=== PATIENT | female | born 2000 | race American Indian/Alaskan Native ===

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

== ENCOUNTER 2022-09-23 16:21 | Observation (INO) | payer MEDICAID ==
[2022-09-23] MEDS ORDERED: Acetaminophen 325 MG Tab PO PRN (16:43)
[2022-09-23] MEDS ORDERED: Methylergonovine 0.2 MG/1 ML Amp IM PRN (16:43)
[2022-09-23] MEDS ORDERED: Carboprost Tromethamine 250 MCG/1 ML Amp IM PRN (16:43)
[2022-09-23] MEDS ORDERED: Lactated Ringers 1,000 ML IV ONE (16:43)
[2022-09-23] MEDS ORDERED: Sodium Chloride 0.9% 10 ML Syringe FLUSH PRN ×2 (16:43→19:00)
[2022-09-23] MEDS ORDERED: Lidocaine 1% 10 ML MDV INJECT PRN (16:43)
[2022-09-23] MEDS ORDERED: Ondansetron 4 MG/2 ML SDV IVPUSH PRN ×2 (16:43→18:41)
[2022-09-23] MEDS ORDERED: Misoprostol 400 MCG (4 X 100 MCG TAB) RECTAL PRN (16:43)
[2022-09-23] MEDS ORDERED: Lactated Ringers 1,000 ML IV SCH (16:45)
[2022-09-23] MEDS ORDERED: Tranexamic Acid 1,000 MG in Sodium Chloride 0.9% 100 ML IV PRN (16:46)
[2022-09-23] MEDS ORDERED: Dexmedetomidine 200 MCG/2 ML SDV IV ONE (17:30)
[2022-09-23] MEDS ORDERED: EPINEPHrine 1 MG/ML SDV IV ONE (17:30)
[2022-09-23] MEDS ORDERED: Ondansetron 4 MG/2 ML SDV IV ONE (17:30)
[2022-09-23] MEDS ORDERED: Sodium Chloride 0.9% 20 ML SDV IV ONE (17:30)
[2022-09-23] MEDS ORDERED: Morphine PF 10 MG/10 ML SDV IT ONE (17:30)
[2022-09-23] MEDS ORDERED: Sodium Chloride 0.9% 10 ML Syringe IV ONE (17:30)
[2022-09-23] MEDS ORDERED: Sodium Bicarbonate 4.2% 2.5 MEQ/5 ML SDV ONE ×2 (17:30→18:29)
[2022-09-23] MEDS ORDERED: ePHEDrine 50 MG/ML SDV IV ONE (17:30)
[2022-09-23] MEDS ORDERED: Promethazine 25 MG/ML SDV IM PRN (18:41)
[2022-09-23] MEDS ORDERED: ePHEDrine 50 MG/ML SDV IVPUSH PRN (18:41)
[2022-09-23] MEDS ORDERED: Naloxone 2 MG/2 ML Syringe IVPUSH PRN (18:41)
[2022-09-23] MEDS: Oxytocin/Normal Saline 30 UNIT/500 ML BAG IV SCH ×2 (18:44→20:45)
[2022-09-23] MEDS ORDERED: Lactated Ringers 500 ML IV SCH ×2 (18:45)
[2022-09-23] MEDS ORDERED: Zolpidem 5 MG Tab PO PRN (19:00)
[2022-09-23] MEDS ORDERED: Oxytocin 10 Units/1 ML SDV IM PRN (19:00)
[2022-09-23] MEDS ORDERED: Simethicone 80 MG Tab.Chew PO PRN (19:00)
[2022-09-23] MEDS ORDERED: Benzocaine/Menthol 20%-0.5% Spray 78 GM Cannister TOP PRN (19:00)
[2022-09-24] MEDS: Ferrous Sulfate 325 MG Tab PO SCH (07:58)
[2022-09-24] MEDS: Docusate Sodium 100 MG Cap PO PRN (07:59)
[2022-09-24] MEDS: Ibuprofen 800 MG Tab PO PRN (07:59)
[2022-09-24] MEDS: Prenatal Multivitamin with Calcium/Folic Acid/Iron Tab PO SCH (07:59)
[2022-09-24] MEDS ORDERED: Measles, Mumps & Rubella Vaccine 0.5 ML SDV SUBCUT ONE (12:00)
[2022-09-25] MEDS: Docusate Sodium 100 MG Cap PO PRN (08:19)
[2022-09-25] MEDS: Prenatal Multivitamin with Calcium/Folic Acid/Iron Tab PO SCH (08:19)
[2022-09-25] MEDS: Ferrous Sulfate 325 MG Tab PO SCH (08:19)
[2022-09-25] MEDS: Ibuprofen 800 MG Tab PO PRN (08:22)
[2022-09-25 13:44] VITALS: BP 126/54; PULSE 70
== END 2022-09-25 13:00 | disposition home or self-care (01) ==
LOC: DL.OBCHECK 16:21 → DL.OB 16:33
PROVIDERS: ADMIT Family Medicine; ATTEND Family Medicine
DX: O42.92 Full-term premature rupture of membranes, unspecified as to length of time between rupture and onset of labor (principal); O98.513 Other viral diseases complicating pregnancy, third trimester; O12.13 Gestational proteinuria, third trimester; F41.9 Anxiety disorder, unspecified; F32.A Depression, unspecified; Z90.49 Acquired absence of other specified parts of digestive tract; Z88.2 Allergy status to sulfonamides; Z88.1 Allergy status to other antibiotic agents; Z87.891 Personal history of nicotine dependence; Z3A.39 39 weeks gestation of pregnancy; Z79.899 Other long term (current) drug therapy; Z20.822 Contact with and (suspected) exposure to COVID-19
CPT/HCPCS: 36415; 59020; 59409; 85027; 87635; 90471; 90707; A9270; J2590; J3490; J7120; J0171; J2270; J2405; U0002

== ENCOUNTER 2024-03-24 20:06 | Emergency (ER) | payer MEDICAID, OTHER ==
[2024-03-24 20:53] VITALS: BP 137/94; PULSE 91
== END 2024-03-24 23:24 | disposition home or self-care (01) ==
LOC: DL.ED 20:06
DX: S93.401A Sprain of unspecified ligament of right ankle, initial encounter (principal); E66.9 Obesity, unspecified; Z90.49 Acquired absence of other specified parts of digestive tract; Z68.41 Body mass index [BMI] 40.0-44.9, adult; X50.1XXA Overexertion from prolonged static or awkward postures, initial encounter
CPT/HCPCS: 73610-RT; 99283

== ENCOUNTER 2024-05-28 16:38 | Emergency (ER) | payer OTHER ==
[2024-05-28 17:10] VITALS: BP 133/82; PULSE 83
[2024-05-28 18:06] LABS: BASOPHILS PERCENT AUTO 0.2 % (0.0-1.0); EOSINOPHILS PERCENT AUTO 0.3 % (1.0-3.0); HEMATOCRIT 42.5 % (37.0-47.0); HEMOGLOBIN 13.8 g/dL (12.0-16.0); LYMPHOCYTES PERCENT AUTO 10.3 % (20.5-50.1); MEAN CORPUSCULAR HEMOGLOBIN 26.7 pg (27.0-34.0); MEAN CORPUSCULAR HGB CONC 32.5 g/dL (33.0-35.0); MEAN CORPUSCULAR VOLUME 82.2 fL (80-100); MONOCYTES PERCENT AUTO 3.3 % (2-8); NEUTROPHILS PERCENT AUTO 85.9 % (42.2-75.2); PLATELET COUNT,PLT 314 10^3/uL (150-450); RED BLOOD CELL COUNT 5.17 10^6/uL (4.2-5.4); WHITE BLOOD CELL COUNT,WBC 14.3 10^3/uL (5.0-10.0)
[2024-05-28] MEDS: Sodium Chloride 0.9% 10 ML Syringe FLUSH PRN (18:06)
[2024-05-28] MEDS: Ondansetron 4 MG/2 ML SDV IVPUSH ONE ×2 (18:06→20:00)
[2024-05-28] MEDS: Lactated Ringers 1,000 ML IV ONE (18:06)
[2024-05-28 18:22] LABS: A/G RATIO 0.7; ALANINE AMINOTRANSFERASE,ALT 67 U/L (14-59); ALBUMIN 3.5 g/dL (3.4-5.0); ALKALINE PHOSPHATASE 80 U/L (46-116); ANION GAP 10.8 mEq/L (7-13); ASPARTATE AMNIOTRANSFERASE,AST 21 U/L (15-37); BILIRUBIN TOTAL 0.5 mg/dL (0.2-1.0); BLOOD UREA NITROGEN,BUN 7 mg/dL (7-18); BUN/CREATININE RATIO 7.2 (No establ ref range); CALCIUM 9.1 mg/dL (8.5-10.1); CARBON DIOXIDE,CO2 27 mmol/L (21-32); CHLORIDE,CL 102 mmol/L (98-107); CREATININE 0.97 mg/dL (0.55-1.02); EST CRCL DRUG DOSING (CG) 75.89 mL/min; GLUCOSE RANDOM 106 mg/dL (70-99); LIPASE 20 U/L (16-77); MAGNESIUM 1.5 mg/dL (1.8-2.4); POTASSIUM,K 3.8 mmol/L (3.5-5.1); PROTEIN TOTAL,TP 8.2 g/dL (6.4-8.2); SODIUM,NA 136 mmol/L (136-145)
[2024-05-28 18:23] LABS: ESTIMATED GFR 85 mL/min (>=60)
[2024-05-28 18:28] LABS: HCG QUALITATIVE,SERUM NEGATIVE (NEGATIVE)
[2024-05-28 18:30] LABS: LACTIC ACID 1.4 mmol/L (0.4-2.0)
[2024-05-28 18:34] LABS: APPEARANCE,URINE CLEAR (CLEAR); BILIRUBIN,URINE NEGATIVE (NEGATIVE); COLOR,URINE YELLOW (YELLOW); GLUCOSE,URINE NEGATIVE (NEGATIVE); KETONES,URINE NEGATIVE (NEGATIVE); LEUKOCYTE ESTERASE,URINE SMALL (NEGATIVE); NITRITE,URINE NEGATIVE (NEGATIVE); OCCULT BLOOD,URINE NEGATIVE (NEGATIVE); PROTEIN,URINE NEGATIVE (NEGATIVE); UROBILINOGEN,URINE 0.2 mg/dL (0.2-1.0)
[2024-05-28 18:42] LABS: BACTERIA,URINE MODERATE /HPF (0-FEW/HPF); EPITHELIAL CELLS,URINE MODERATE /HPF (NOT SEEN); MUCUS,URINE MODERATE /LPF (NOT SEEN); RBC,URINE 0-5 /HPF (0-5)
[2024-05-28] MEDS: Iopamidol 612 MG/ML 100 ML Bottle IVPUSH ONE (19:01)
[2024-05-28] MEDS: Ketorolac 30 MG/ML SDV IVPUSH ONE (19:48)
[2024-05-28] MEDS: Take Home: Ondansetron 4 MG Tab.DIS, 5 Tab Pack PO ONE (21:21)
== END 2024-05-28 21:44 | disposition home or self-care (01) ==
LOC: DL.ED 16:38
DX: A08.4 Viral intestinal infection, unspecified (principal); E66.9 Obesity, unspecified; F17.210 Nicotine dependence, cigarettes, uncomplicated; Z88.2 Allergy status to sulfonamides; Z88.8 Allergy status to other drugs, medicaments and biological substances; Z68.42 Body mass index [BMI] 45.0-49.9, adult; Z90.49 Acquired absence of other specified parts of digestive tract
CPT/HCPCS: 36415; 74177; 80053; 81001; 83605; 83690; 83735; 84703; 85025; 87086; 96361; 96374; 96375; 96376; 99284; 99284-25; J1885; J2405; J3490; J7120; Q0162; Q9967

== ENCOUNTER 2024-06-21 11:14 | Emergency (ER) | payer OTHER ==
[2024-06-21 11:35] VITALS: BP 126/75; PULSE 100
[2024-06-21] MEDS: Sodium Chloride 0.9% 1,000 ML IV ONE ×2 (12:16→15:01)
[2024-06-21] MEDS: Ondansetron 4 MG/2 ML SDV IVPUSH ONE (12:16)
[2024-06-21] MEDS: fentaNYL 100 MCG/2 ML SDV IVPUSH ONE (12:16)
[2024-06-21] MEDS: Sodium Chloride 0.9% 10 ML Syringe FLUSH PRN (12:17)
[2024-06-21 12:20] LABS: BASOPHILS PERCENT AUTO 0.2 % (0.0-1.0); EOSINOPHILS PERCENT AUTO 0.6 % (1.0-3.0); HEMOGLOBIN 13.1 g/dL (12.0-16.0); LYMPHOCYTES PERCENT AUTO 8.3 % (20.5-50.1); MEAN CORPUSCULAR HEMOGLOBIN 26.4 pg (27.0-34.0); MEAN CORPUSCULAR VOLUME 82.5 fL (80-100); MONOCYTES PERCENT AUTO 4.3 % (2-8); NEUTROPHILS PERCENT AUTO 86.6 % (42.2-75.2); PLATELET COUNT,PLT 372 10^3/uL (150-450); RED BLOOD CELL COUNT 4.97 10^6/uL (4.2-5.4); WHITE BLOOD CELL COUNT,WBC 22.2 10^3/uL (5.0-10.0)
[2024-06-21 12:39] LABS: APPEARANCE,URINE SLIGHTLY CLOUDY (CLEAR); BILIRUBIN,URINE NEGATIVE (NEGATIVE); COLOR,URINE YELLOW (YELLOW); GLUCOSE,URINE NEGATIVE (NEGATIVE); KETONES,URINE NEGATIVE (NEGATIVE); LEUKOCYTE ESTERASE,URINE SMALL (NEGATIVE); NITRITE,URINE NEGATIVE (NEGATIVE); OCCULT BLOOD,URINE NEGATIVE (NEGATIVE); PH,URINE 7.5 (5.0-9.0); PROTEIN,URINE 30 (NEGATIVE); UROBILINOGEN,URINE 0.2 mg/dL (0.2-1.0)
[2024-06-21 12:42] LABS: BACTERIA,URINE MODERATE /HPF (0-FEW/HPF); EPITHELIAL CELLS,URINE MODERATE /HPF (NOT SEEN); MUCUS,URINE RARE /LPF (NOT SEEN); RBC,URINE NOT SEEN /HPF (0-5)
[2024-06-21 12:42] LABS: A/G RATIO 0.7; ALANINE AMINOTRANSFERASE,ALT 48 U/L (14-59); ALBUMIN 3.4 g/dL (3.4-5.0); ALKALINE PHOSPHATASE 78 U/L (46-116); ANION GAP 13.6 mEq/L (7-13); ASPARTATE AMNIOTRANSFERASE,AST 12 U/L (15-37); BILIRUBIN TOTAL 0.7 mg/dL (0.2-1.0); BLOOD UREA NITROGEN,BUN 7 mg/dL (7-18); BUN/CREATININE RATIO 7.7 (No establ ref range); CALCIUM 8.7 mg/dL (8.5-10.1); CARBON DIOXIDE,CO2 22 mmol/L (21-32); CHLORIDE,CL 103 mmol/L (98-107); CREATININE 0.91 mg/dL (0.55-1.02); EST CRCL DRUG DOSING (CG) 80.89 mL/min; ESTIMATED GFR 92 mL/min (>=60); GLUCOSE RANDOM 117 mg/dL (70-99); LIPASE 15 U/L (16-77); POTASSIUM,K 3.6 mmol/L (3.5-5.1); PROTEIN TOTAL,TP 8.1 g/dL (6.4-8.2); SODIUM,NA 135 mmol/L (136-145)
[2024-06-21 12:44] LABS: LACTIC ACID 1.7 mmol/L (0.4-2.0)
[2024-06-21 12:46] LABS: PROTHROMBIN TIME 9.9 SEC (9.0-12.0); PTT,PARTIAL THROMBOPLSTIN TIME 26.4 SEC (22.0-34.0)
[2024-06-21] MEDS: Iopamidol 612 MG/ML 100 ML Bottle IVPUSH ONE (12:47)
[2024-06-21] MEDS: HYDROmorphone 1 MG/ML Syringe IVPUSH ONE (13:07)
[2024-06-21] MEDS: Piperacillin/Tazobactam 3.375 GM in Sodium Chloride 0.9% 100 ML IV ONE (15:01)
== END 2024-06-21 15:36 ==
LOC: DL.ED 11:14
DX: K81.9 Cholecystitis, unspecified (principal); E66.9 Obesity, unspecified; F17.210 Nicotine dependence, cigarettes, uncomplicated; Z90.49 Acquired absence of other specified parts of digestive tract; Z88.2 Allergy status to sulfonamides; Z88.1 Allergy status to other antibiotic agents; Z68.41 Body mass index [BMI] 40.0-44.9, adult
CPT/HCPCS: 36415; 74177; 76705; 80053; 81001; 81025; 83605; 83690; 84145; 85025; 85610; 85730; 86140; 87040; 87086; 96361; 96365; 96375; 99285; J1170; J2405; J2543; J3010; J3490; J7030; Q9967